=== PATIENT | male | born 1980 | race Caucasian/White ===

== ENCOUNTER 2017-02-28 08:26 | Emergency (ER) | payer SELFPAY ==
[2017-02-28 09:03] VITALS: BP 140/88
--- NOTE | 2017-02-28 09:53 | UC ---
Ear Complaint HPI - HPI Summary HPI Summary: 37 yo Wm c/o 3-4 day h/o chills, bodyaches associated now with sore throat and right ear pain, left eye redness with yellow d/c and pleuritic CP - History of Current Complaint Chief Complaint: UCGeneralIllness Stated Complaint: EYE IRRITATION, EAR ACHE, AND SORE THROAT Time Seen by Provider: 02/28/17 08:48 Onset/Duration: Gradual Onset - Allergies/Home Medications Allergies/Adverse Reactions: Allergies Allergy/AdvReac Type Severity Reaction Status Date / Time No Known Allergies Allergy Verified 02/28/17 08:46 PMH/Surg Hx/FS Hx/Imm Hx - Surgical History Surgical History: None - Social History Alcohol Use: Occasionally Substance Use Type: None Smoking Status (MU): Never Smoked Tobacco Review of Systems Constitutional: Chills, Other - flu-like illness Skin: Negative Eyes: Drainage, Eye Redness ENT: Negative, Ear Ache - right Respiratory: Cough Cardiovascular: Negative Gastrointestinal: Negative Genitourinary: Negative Motor: Negative Neurovascular: Negative Musculoskeletal: Myalgia Neurological: Negative Psychological: Negative All Other Systems Reviewed And Are Negative: Yes Physical Exam Triage Information Reviewed: Yes Appearance: Ill-Appearing Vital Signs: Initial Vital Signs Temp 37 C 02/28/17 08:48 Pulse 74 02/28/17 08:48 Resp 15 02/28/17 08:48 BP 140/88 02/28/17 08:48 Pulse Ox 98 02/28/17 08:48 Eyes: Positive: Conjunctiva Inflamed - Left, Discharge - yellow ENT Exam: Normal ENT: Positive: Pharyngeal erythema, Other - right TM opacity Dental Exam: Normal Neck: Positive: Tenderness @, Enlarged Nodes @ - mild right cervical LAD Respiratory Exam: Normal Respiratory: Positive: Lungs clear, Normal breath sounds, No respiratory distress, No accessory muscle use. Negative: Respiratory distress, Rhonchi, Stridor, Wheezing Cardiovascular Exam: Normal Abdominal Exam: Normal Musculoskeletal Exam: Normal Neurological Exam: Normal Psychological Exam: Normal Skin Exam: Normal Ear Complaint Course/Dx - Differential Dx/Diagnosis Provider Diagnoses: 1- right otitis media. 2- left conjunctivitis. 3- Bronchitis Discharge - Discharge Plan Condition: Stable Disposition: HOME Prescriptions: Amoxicillin/Clavulanate TAB* [Augmentin TAB 875*] 875 mg PO BID 7 Days #14 tab Neomycin/Polymy/Dex OPTH.SUSP* [Maxitrol Opth Susp 0.1%*] 1 drop LEFT EYE TID 7 Days #1 bottle Patient Education Materials: Conjunctivitis (ED), Acute Bronchitis (ED), Otitis Media (ED), Viral Syndrome (ED) Referrals: Anabella Bassett MD [Primary Care Provider] - If Needed Additional Instructions: Please take mucinex DM BID OTC
== END 2017-02-28 10:15 | disposition home or self-care (01) ==
LOC: UCEAST 08:26
DX: H66.91 Otitis media, unspecified, right ear (principal); H10.32 Unspecified acute conjunctivitis, left eye; J40 Bronchitis, not specified as acute or chronic
CPT/HCPCS: 99212; G0463